=== PATIENT | male | born 1960 | race Caucasian/White ===

== ENCOUNTER 2017-10-28 13:50 | Emergency (ER) | payer OTHER ==
[2017-10-28 15:40] LABS: Basophils % (Auto) 0.2 % (0.0-1.8); Eosinophils # (Auto) 0.1 K/mm3 (0.0-0.4); Eosinophils % (Auto) 0.5 % (0.0-4.3); Hematocrit 46.8 % (35.5-45.6); Hemoglobin 15.3 gm/dl (11.8-15.2); Lymphocytes # (Auto) 0.9 K/mm3 (1.2-5.4); Mean Corpuscular HGB Conc 33 % (32-34); Mean Corpuscular Hemoglobin 29 pg (28-32); Mean Corpuscular Volume 89 fl (84-94); Monocytes # (Auto) 0.8 K/mm3 (0.0-0.8); Platelet Count 283 K/mm3 (140-440); Red Blood Count 5.23 M/mm3 (3.65-5.03); Red Cell Distribution Width 14.2 % (13.2-15.2)
[2017-10-28 15:48] LABS: Alanine Aminotransferase 20 units/L (7-56); Albumin 3.9 g/dL (3.9-5); BUN/Creatinine Ratio 20; Blood Urea Nitrogen 14 mg/dL (9-20); Calcium 8.7 mg/dL (8.4-10.2); Hemolysis Index 24; INR 0.91 (0.87-1.13)
--- NOTE | 2017-10-28 16:40 | XRay Report ---
FINAL REPORT EXAM: XR CHEST ROUTINE 2V HISTORY: hypertension TECHNIQUE: Frontal and lateral chest x-ray. PRIORS: None. FINDINGS: Cardiac and mediastinal silhouette within normal limits. Lungs are normally expanded, without significant vascular congestion. No focal consolidation, pleural effusion or apparent pneumothorax. Bony thorax grossly unremarkable. IMPRESSION: 1. No acute findings.
--- NOTE | 2017-10-28 17:55 | Emergency Department Report ---
ED Dizziness HPI - General Chief Complaint: Syncope Stated Complaint: KEENAN/SYNCOPE Time Seen by Provider: 10/28/17 15:09 Source: patient, EMS Mode of arrival: Stretcher Limitations: No Limitations - History of Present Illness Initial Comments: Reports dizziness when turning chin side to side. Improves with keeping chin forward. Complaint: dizziness -: hour(s) Timing: sudden onset Description: "room spinning" History of Same: Yes History of Trauma: No Severity: mild Improves With: remaining still Worsens With: movement Associated Symptoms: shortness of breath (reports sinus congestion since yesterday). denies: ataxia, chest pain, confusion, cough, diaphoresis, fever/ chills, loss of appetite, malaise, rash, seizure, syncope, weakness - Related Data Previous Rx's Medication Instructions Recorded Last Taken Type Loratadine [Claritin] 10 mg PO DAILY #14 tablet 10/28/17 Unknown Rx Meclizine [Antivert] 25 mg PO TID PRN #15 tablet 10/28/17 Unknown Rx Allergies Allergy/AdvReac Type Severity Reaction Status Date / Time No Known Allergies Allergy Unverified 10/28/17 16:41 ED Review of Systems ROS: Stated complaint: KEENAN/SYNCOPE Other details as noted in HPI Other: GENERAL: No weight change, fatigue, weakness, fever, chills, or night sweats SKIN: No changes in skin or hair, no itching, no rashes, no jaundice HEAD: No trauma, headache, or visual changes EYES: No blurriness, tearing, itching, acute visual loss, conjunctival discoloration, or scleral icterus EARS: No hearing loss, tinnitus, vertigo, or earache NOSE: rhinorrhea, stuffiness MOUTH: No bleeding gums, hoarseness, sore throat, or swelling CARDIAC: No new murmur, chest pain, palpitations, dyspnea on exertion, orthopnea , PND, or edema RESPIRATORY: No shortness of breath, wheeze, cough, sputum production, hemoptysis, pneumonia, asthma, bronchitis, or emphysema GI: No change in appetite, nausea, vomiting, dysphagia, change in bowel frequency, diarrhea, constipation, bleeding, hematemesis, melena, hematochezia, or abdominal pain URINARY: No frequency, urgency, polyuria, dysuria, hematuria, or incontinence MUSCULOSKELETAL: No muscle weakness, joint stiffness, decrease in range of motion, redness, swelling NEUROLOGIC: Dizziness. No loss of sensation, numbness, tingling, tremors, weakness, paralysis, seizures PSYCHIATRIC: No change in mood, no anxiety, no depression ED Past Medical Hx - Past Medical History Previous Medical History?: No - Surgical History Past Surgical History?: No - Social History Smoking Status: Never Smoker - Medications Home Medications: Home Medications Medication Instructions Recorded Confirmed Last Taken Type Loratadine [Claritin] 10 mg PO DAILY #14 tablet 10/28/17 Unknown Rx Meclizine [Antivert] 25 mg PO TID PRN #15 tablet 10/28/17 Unknown Rx ED Physical Exam - General Limitations: No Limitations - Other Other exam information: GENERAL: Patient in no acute distress HEAD: Normocephalic, atraumatic EYES: PERRLA, EOM intact, no scleral icterus, visual gasca and acuity wnl NOSE: No tenderness, discharge, sinus tenderness MOUTH: No erythema, bleeding, exudate HEART: Regular rate and rhythm, no murmur, S1-S2 are auscultated, pulses are symmetric LUNGS: bilateral breath sounds. No wheezing, rales, rhonchi ABDOMEN: Normal bowel sounds, no tenderness, no rebound, no guarding, no masses , no CVA tenderness MUSCULOSKELETAL: Normal joint range of motion, no redness, no swelling, no tenderness NEUROLOGIC: GCS 15, Alert and Oriented x3, Cranial nerves intact, normal sensation, normal strength, normal gait, no cerebellar deficit PSYCHIATRIC: No homicidal or suicidal ideation, no anxiety, no depression, no hallucinations SKIN: Skin is warm and dry, no wounds, no rashes ED Course Vital Signs 10/28/17 10/28/17 10/28/17 14:05 14:09 14:16 Temperature 97.8 F Pulse Rate 60 72 Respiratory 15 17 Rate Blood Pressure 10/28/17 10/28/17 10/28/17 14:30 14:46 15:00 Temperature Pulse Rate 69 70 71 Respiratory 15 13 17 Rate Blood Pressure 10/28/17 10/28/17 10/28/17 15:16 15:30 15:45 Temperature Pulse Rate 67 63 60 Respiratory 12 12 13 Rate Blood Pressure 10/28/17 10/28/17 10/28/17 16:01 16:15 16:31 Temperature Pulse Rate 63 66 70 Respiratory 12 13 17 Rate Blood Pressure 10/28/17 18:01 Temperature Pulse Rate 72 Respiratory 18 Rate Blood Pressure 130/90 ED Medical Decision Making - Lab Data Result diagrams: 10/28/17 15:10 10/28/17 15:10 Laboratory Results - last 24 hr 10/28/17 10/28/17 10/28/17 15:10 15:10 15:10 WBC 15.3 H RBC 5.23 H Hgb 15.3 H Hct 46.8 H MCV 89 MCH 29 MCHC 33 RDW 14.2 Plt Count 283 Lymph % (Auto) 6.0 L [place] % (Auto) 5.0 Eos % (Auto) 0.5 Baso % (Auto) 0.2 Lymph # 0.9 L [place] # 0.8 Eos # 0.1 Baso # 0.0 Seg Neutrophils % 88.3 H Seg Neutrophils # 13.5 H PT 12.7 INR 0.91 APTT 25.0 Sodium 137 Potassium 3.9 Chloride 98.7 Carbon Dioxide 26 Anion Gap 16 BUN 14 Creatinine 0.7 L Estimated GFR > 60 BUN/Creatinine Ratio 20 Glucose 92 Calcium 8.7 Total Bilirubin 0.50 AST 15 ALT 20 Alkaline Phosphatase 82 Troponin T < 0.010 NT-Pro-B Natriuret Pep 50.48 Total Protein 7.6 Albumin 3.9 Albumin/Globulin Ratio 1.1 - EKG Data When compared to previous EKG there are: no significant change - Radiology Data Radiology results: report reviewed - Medical Decision Making Patient comfortable. Updated with results. Plan discharge with outpatient follow up. Patient agrees with plan and will return if symptoms worsen. Critical care attestation.: If time is entered above; I have spent that time in minutes in the direct care of this critically ill patient, excluding procedure time. ED Disposition Clinical Impression: Vertigo Sinusitis Qualifiers: Sinusitis location: other Chronicity: acute Recurrence: not specified as recurrent Qualified Code(s): J01.80 - Other acute sinusitis Disposition: - TO HOME OR SELFCARE Is pt being admited?: No Condition: Stable Instructions: Sinusitis (ED), Vertigo (ED) Prescriptions: Loratadine [Claritin] 10 mg PO DAILY #14 tablet Meclizine [Antivert] 25 mg PO TID PRN #15 tablet PRN Reason: Vertigo Referrals: PRIMARY CAREMD [Primary Care Provider] - 2-3 Days VANDANA VELAZQUEZ MD [Staff Physician] - 2-3 Days Time of Disposition: 17:55
[2017-10-28 18:16] VITALS: BP 130/90
== END 2017-10-28 18:50 | disposition home or self-care (01) ==
LOC: ED 13:50
DX: R55 Syncope and collapse (principal); J32.9 Chronic sinusitis, unspecified
CPT/HCPCS: 36415; 71046; 80053; 83880; 84484; 85025; 85610; 85730; 93005; 93010; 99285

== ENCOUNTER 2018-11-24 15:42 | Emergency (ER) | payer SELFPAY ==
[2018-11-24] MEDS ORDERED: NACL 0.9% 1000 ML 1,000 ML IV ONE (16:52)
--- NOTE | 2018-11-24 16:54 | Emergency Department Report ---
ED Dizziness HPI - General Chief Complaint: Dizziness Stated Complaint: SYNCOPAL EPISODE Time Seen by Provider: 11/24/18 16:42 Source: patient, EMS Mode of arrival: Stretcher Limitations: No Limitations - History of Present Illness Initial Comments: Patient is a 58-year-old male that presents emergency room with complaints of getting overheated and dizziness. Patient states she was at work and became very hot while working outside and patient got lightheaded, dizzy and had a near syncopal episode. Patient denies loss of consciousness or syncope. Patient states she had nausea and vomiting times one. Patient states that he was given an IV and fluids by EMS and his symptoms improved. Patient states most of his symptoms have resolved except for his headache. Patient states his headache is a 2 out of 10. Patient states that his headache is mild and is his entire head. Patient denies blurry vision. Patient states his dizziness is improved and almost resolved. Patient states his weakness and overheated sensation is resolved. MD Complaint: dizziness, lightheadedness, near syncope -: Sudden Timing: sudden onset Description: "room spinning", lightheadedness, nausea, near-syncope History of Same: Yes History of Trauma: No Severity: severe Improves With: rehydration, rest Worsens With: movement, position, exertion Associated Symptoms: malaise, weakness. denies: ataxia, chest pain, confusion, cough, diaphoresis, fever/chills, loss of appetite, seizure, shortness of breath, syncope - Related Data Previous Rx's Medication Instructions Recorded Last Taken Type Loratadine [Claritin] 10 mg PO DAILY #14 tablet 10/28/17 Unknown Rx Meclizine [Antivert] 25 mg PO TID PRN #15 tablet 10/28/17 Unknown Rx Allergies Allergy/AdvReac Type Severity Reaction Status Date / Time No Known Allergies Allergy Unverified 10/28/17 16:41 ED Review of Systems ROS: Stated complaint: SYNCOPAL EPISODE Other details as noted in HPI Constitutional: malaise, weakness. denies: chills, fever Eyes: denies: eye pain, eye discharge, vision change ENT: denies: ear pain, throat pain Respiratory: denies: cough, shortness of breath, wheezing Cardiovascular: denies: chest pain, palpitations Endocrine: no symptoms reported Gastrointestinal: nausea, vomiting. denies: abdominal pain, diarrhea Genitourinary: denies: urgency, dysuria Musculoskeletal: denies: back pain, joint swelling, arthralgia Skin: denies: rash, lesions Neurological: headache, weakness, vertigo, other (dizziness). denies: paresthesias Psychiatric: denies: anxiety, depression Hematological/Lymphatic: denies: easy bleeding, easy bruising ED Past Medical Hx - Past Medical History Previous Medical History?: Yes Hx Headaches / Migraines: Yes Additional medical history: Vertigo - Surgical History Past Surgical History?: Yes Additional Surgical History: Oral - Family History Family history: no significant - Social History Smoking Status: Former Smoker Substance Use Type: Alcohol - Medications Home Medications: Home Medications Medication Instructions Recorded Confirmed Last Taken Type Loratadine [Claritin] 10 mg PO DAILY #14 tablet 10/28/17 Unknown Rx Meclizine [Antivert] 25 mg PO TID PRN #15 tablet 10/28/17 Unknown Rx ED Physical Exam - General Limitations: No Limitations General appearance: alert, in no apparent distress - Head Head exam: Present: atraumatic, normocephalic - Eye Eye exam: Present: normal appearance, PERRL Pupils: Present: normal accommodation - ENT ENT exam: Present: normal orophraynx, mucous membranes dry, TM's normal bilaterally, normal external ear exam - Neck Neck exam: Present: normal inspection, full ROM. Absent: tenderness, men ingismus - Respiratory Respiratory exam: Present: normal lung sounds bilaterally. Absent: respiratory distress, wheezes, rales, rhonchi - Cardiovascular Cardiovascular Exam: Present: regular rate, normal rhythm. Absent: systolic murmur, diastolic murmur, rubs, gallop - GI/Abdominal GI/Abdominal exam: Present: soft, normal bowel sounds. Absent: distended, tenderness, guarding - Rectal Rectal exam: Present: deferred - Extremities Exam Extremities exam: Present: normal inspection, full ROM. Absent: tenderness - Back Exam Back exam: Present: normal inspection, full ROM. Absent: tenderness, CVA tenderness (R) - Neurological Exam Neurological exam: Present: alert, oriented X3, CN II-XII intact - Psychiatric Psychiatric exam: Present: normal affect, normal mood - Skin Skin exam: Present: warm, dry, intact, normal color. Absent: rash ED Course Vital Signs 11/24/18 16:26 Temperature 98.2 F Pulse Rate 76 Respiratory 18 Rate Blood Pressure 146/89 [Left] O2 Sat by Pulse 98 Oximetry - Reevaluation(s) Reevaluation #1: Patient complaining of nausea. Patient was given Zofran. Patient EKG is negative. 11/24/18 17:30 He states he is feeling better. Patient denies nausea and vomiting at this time. Patient states his lightheaded dizziness is completely resolved. Discussed all results with patient. Patient is stable for discharge. Patient will be discharged home. Patient agrees to plan of care. Patient given discharge instructions. Patient voiced understanding of discharge instructions. 11/24/18 18:24 ED Medical Decision Making - Lab Data Result diagrams: 11/24/18 17:01 11/24/18 17:01 - EKG Data -: EKG Interpreted by Me EKG shows normal: sinus rhythm, axis, intervals, QRS complexes, ST-T waves Rate: normal - Medical Decision Making Patient is a 58-year-old male that presents emergency room with complaints of dizziness, lightheadedness and near syncope after working outside in the heat. Patient's clinical findings are consistent with zoster. Patient given 2 L of fluid and patient urinated one time in the ER. Patient's symptoms resolved after fluids. Patient's nausea resolved with medications. Patient will be discharged home. Patient given discharge instructions. Patient's labs are unremarkable except for hemoconcentration. - Differential Diagnosis heat exhaustion. Dizziness. Lightheaded. Nausea vomiting. Critical Care Time: Yes Critical care attestation.: If time is entered above; I have spent that time in minutes in the direct care of this critically ill patient, excluding procedure time. Critical Care Time: 35 minutes ED Disposition Clinical Impression: Dehydration, Dizziness Heat exhaustion Qualifiers: Encounter type: initial encounter Qualified Code(s): T67.5XXA - Heat e xhaustion, unspecified, initial encounter Nausea & vomiting Qualifiers: Vomiting type: unspecified Vomiting Intractability: non-intractable Qualified Code(s): R11.2 - Nausea with vomiting, unspecified Disposition: -01 TO HOME OR SELFCARE Is pt being admited?: No Does the pt Need Aspirin: No Condition: Stable Instructions: Heat Exhaustion (ED), Dizziness (ED), Lightheadedness (ED), Dehydration (ED) Additional Instructions: Patient to follow-up with primary care in 2-3 days. Patient to take Tylenol or ibuprofen when necessary for pain. Patient to return to ER if condition worsens. Patient to take meds as directed. Patient to increase water. Patient to rest. Patient to continue all meds. Referrals: RAMONITA JUDGE MD [Primary Care Provider] - 2-3 Days Time of Disposition: 18:25
[2018-11-24 17:16] LABS: Basophils # (Auto) 0.1 K/mm3 (0.0-0.1); Basophils % (Auto) 0.3 % (0.0-1.8); Eosinophils % (Auto) 0.2 % (0.0-4.3); Hematocrit 47.3 % (35.5-45.6); Lymphocytes # (Auto) 1.1 K/mm3 (1.2-5.4); Lymphocytes % (Auto) 5.9 % (13.4-35.0); Mean Corpuscular HGB Conc 34 % (32-34); Mean Corpuscular Volume 89 fl (84-94); Monocytes # (Auto) 0.8 K/mm3 (0.0-0.8); Monocytes % (Auto) 4.5 % (0.0-7.3); Platelet Count 261 K/mm3 (140-440); Red Blood Count 5.31 M/mm3 (3.65-5.03); Red Cell Distribution Width 14.3 % (13.2-15.2)
[2018-11-24] MEDS ORDERED: ZOFRAN IV ONE (17:25)
[2018-11-24] MEDS ORDERED: ZOFRAN ONE (17:26)
[2018-11-24 17:31] LABS: Alanine Aminotransferase 26 units/L (7-56); Albumin 4.2 g/dL (3.9-5); BUN/Creatinine Ratio 17; Blood Urea Nitrogen 15 mg/dL (9-20); Hemolysis Index 4
[2018-11-24 19:01] VITALS: BP 148/92
== END 2018-11-24 19:01 | disposition home or self-care (01) ==
LOC: ED 15:42
DX: T67.5XXA Heat exhaustion, unspecified, initial encounter (principal); E86.0 Dehydration; G43.909 Migraine, unspecified, not intractable, without status migrainosus; Z87.891 Personal history of nicotine dependence; Z79.899 Other long term (current) drug therapy; Y92.89 Other specified places as the place of occurrence of the external cause
CPT/HCPCS: 36415; 80053; 85025; 93005; 93010; 96360; 99284; J2405; J7030